=== PATIENT | female | born 2000 | race Caucasian/White ===

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

== ENCOUNTER 2018-10-26 03:25 | Emergency (ER) | payer OTHER ==
[2018-10-26] MEDS ORDERED: diphenhydrAMINE 50 MG/ML SDV IVPUSH ONE (03:29)
[2018-10-26] MEDS ORDERED: methylPREDNISolone Sodium Succinate 125 MG/2 ML SDV IVPUSH ONE (03:29)
[2018-10-26] MEDS ORDERED: Famotidine 20 MG/2 ML SDV IVPUSH ONE (03:29)
[2018-10-26] MEDS ORDERED: LORazepam 2 MG/ML SDV IVPUSH ONE ×2 (03:31→04:47)
--- NOTE | 2018-10-26 03:34 | EDM.PDOC ---
ED HPI GENERAL MEDICAL PROBLEM - General Stated Complaint: ALLERGIC REACTION Time Seen by Provider: 10/26/18 03:31 Source of Information: Reports: Patient, EMS - History of Present Illness INITIAL COMMENTS - FREE TEXT/NARRATIVE: HISTORY AND PHYSICAL: History of present illness: []Patient is in EMS, she was out on a call tonight, she believe she was stung by a bee she does have bee sting allergy EMS coworkers did provide epinephrine stating she had some lip swelling and stridor She then had a panic attack It is questionable whether she was stung by a bee or may be was pricked by a cactus however no stinger is present and no markings are present. Leave the injury/staying or pole occurred on the right upper extremity no lesions are appreciated At current she is quite anxious however in no distress maintaining her airway hemodynamically stable no lip swelling tongue swelling or stridor noted No fever nausea vomiting chills sweats no chest pain shortness breath headache dizziness palpitation no bowel or urine symptoms Review of systems: As per history of present illness and below otherwise all systems reviewed and negative. Past medical history: As per history of present illness and as reviewed below otherwise noncontributory. Surgical history: As per history of present illness and as reviewed below otherwise noncontributory. Social history: No reported history of drug or alcohol abuse. Family history: As per history of present illness and as reviewed below otherwise noncontributory. Physical exam: HEENT: Atraumatic, normocephalic, pupils reactive, negative for conjunctival pallor or scleral icterus, mucous membranes moist, throat clear, neck supple, nontender, trachea midline. Lungs: Clear to auscultation, breath sounds equal bilaterally, chest nontender. Heart: S1S2, regular, negative for clicks, rubs, or JVD. Abdomen: Soft, nondistended, nontender. Negative for masses or hepatosplenomegaly. Negative for costovertebral tenderness. Pelvis: Stable nontender. Genitourinary: Deferred. Rectal: Deferred. Extremities: Atraumatic, negative for cords or calf pain. Neurovascular unremarkable. Neuro: Awake, alert, oriented. Cranial nerves II through XII unremarkable. Cerebellum unremarkable. Motor and sensory unremarkable throughout. Exam nonfocal. Diagnostics: [Clinical ] Therapeutics: [Epinephrine provided via EMS Ativan 1 mg IV 2 Benadryl Famotidine Solu-Medrol ] Impression: Anxiety [ possible bee sting Bee sting allergy history Definitive disposition and diagnosis as appropriate pending reevaluation and review of above. Headache Pain Score (Numeric/FACES): 5 Back Pain Score (Numeric/FACES): 7 - Related Data Allergies Allergy/AdvReac Type Severity Reaction Status Date / Time No Known Allergies Allergy Verified 07/05/16 11:15 Home Meds: Home Meds Amitriptyline [Elavil] 10 mg PO BEDTIME 07/05/16 [History] ED ROS GENERAL - Review of Systems Review Of Systems: See Below ED EXAM, GENERAL - Physical Exam Exam: See Below Course - Vital Signs Last Recorded V/S: Last Vital Signs Temp 97.8 F 10/26/18 03:31 Pulse 107 H 10/26/18 03:44 Resp 15 10/26/18 03:44 BP 123/56 L 10/26/18 03:44 Pulse Ox 97 10/26/18 03:44 - Orders/Labs/Meds Orders: Active Orders 24 hr Category Date Time Status EKG 12 Lead [EKG Documentation Completion] [RC] STAT Care 10/26/18 03:45 Active Meds: Medications Discontinued Medications Generic Name Dose Route Start Last Admin Trade Name Freq PRN Reason Stop Dose Admin Diphenhydramine HCl 50 mg 10/26/18 03:29 10/26/18 03:48 Benadryl IVPUSH 10/26/18 03:30 50 mg ONETIME ONE Administration Famotidine 20 mg 10/26/18 03:29 10/26/18 03:48 Pepcid IVPUSH 10/26/18 03:30 20 mg ONETIME ONE Administration Sodium Chloride 1,000 mls @ 999 mls/hr 10/26/18 03:44 10/26/18 03:54 Normal Saline IV 10/26/18 04:44 999 mls/hr STAT ONE Administration Lorazepam 1 mg 10/26/18 03:31 10/26/18 03:47 Ativan IVPUSH 10/26/18 03:32 1 mg ONETIME ONE Administration Lorazepam 1 mg 10/26/18 04:47 10/26/18 04:55 Ativan IVPUSH 10/26/18 04:48 1 mg ONETIME ONE Administration Methylprednisolone Sodium Succinate 125 mg 10/26/18 03:29 10/26/18 03:47 Solu-Medrol IVPUSH 10/26/18 03:30 125 mg ONETIME ONE Administration Ondansetron HCl 8 mg 10/26/18 03:44 10/26/18 03:48 Zofran IVPUSH 10/26/18 03:45 8 mg ONETIME ONE Administration Departure - Departure Time of Disposition: 05:21 Disposition: Home, Self-Care 01 Condition: Good Clinical Impression: Anxiety - Discharge Information Additional Instructions: The following information is given to patients seen in the emergency department who are being discharged to home. This information is to outline your options for follow-up care. We provide all patients seen in our emergency department with a follow-up referral. The need for follow-up, as well as the timing and circumstances, are variable depending upon the specifics of your emergency department visit. If you don't have a primary care physician on staff, we will provide you with a referral. We always advise you to contact your personal physician following an emergency department visit to inform them of the circumstance of the visit and for follow-up with them and/or the need for any referrals to a consulting specialist. The emergency department will also refer you to a specialist when appropriate. This referral assures that you have the opportunity for follow-up care with a specialist. All of these measure are taken in an effort to provide you with optimal care, which includes your follow-up. Under all circumstances we always encourage you to contact your private physician who remains a resource for coordinating your care. When calling for follow-up care, please make the office aware that this follow-up is from your recent emergency room visit. If for any reason you are refused follow-up, please contact the [facility] emergency department at and asked to speak to the emergency department charge nurse. - My Orders Last 24 Hours: My Active Orders 10/26/18 03:45 EKG 12 Lead [EKG Documentation Completion] [RC] STAT - Assessment/Plan Last 24 Hours: My Active Orders 10/26/18 03:45 EKG 12 Lead [EKG Documentation Completion] [RC] STAT
[2018-10-26] MEDS ORDERED: Ondansetron 4 MG/2 ML SDV IVPUSH ONE (03:44)
[2018-10-26] MEDS ORDERED: Sodium Chloride 0.9% 1,000 ML IV ONE (03:44)
--- NOTE | 2018-10-26 04:54 | CR ---
Indication: Chest pain, dyspnea Technique: Chest 1 view Comparison: None Findings/Impression: Cardiovascular and mediastinum: Heart size and vasculature are normal in caliber and appearance. Mediastinum is within normal limits. Lungs and pleural space: Lungs are clear. No sign of infiltrate or mass. No sign of pleural effusion. No pneumothorax. Bones and soft tissues: No significant findings. Bilateral nipple piercings noted. Dictated by Gisselle Benjamin MD @ Oct 26 2018 4:53AM Signed by Dr. Gisselle Benjamin @ Oct 26 2018 4:53AM
[2018-10-26 06:27] VITALS: BP 104/56
== END 2018-10-26 05:41 | disposition home or self-care (01) ==
LOC: MW.ED 03:25
DX: F41.9 Anxiety disorder, unspecified (principal); Z91.030 Bee allergy status; Z79.899 Other long term (current) drug therapy
CPT/HCPCS: 71045; 81001; 81025; 93005; 96361; 96374; 96375; 96376; 99285; J1200; J2060; J2405; J2930; J3490; J7040; 99283

== ENCOUNTER 2018-11-08 22:52 | Emergency (ER) | payer OTHER ==
[2018-11-08] MEDS ORDERED: Sodium Chloride 0.9% 1,000 ML IV ONE (23:25)
--- NOTE | 2018-11-08 23:42 | EDM.PDOC ---
ED HPI GENERAL MEDICAL PROBLEM - General Chief Complaint: Chest Pain Stated Complaint: CHEST PAIN Time Seen by Provider: 11/08/18 23:22 - History of Present Illness INITIAL COMMENTS - FREE TEXT/NARRATIVE: HISTORY AND PHYSICAL: History of present illness: Patient 18-year-old white female presents status post overdose patient has history of anxiety and depression and took approximately 30 .5 mg lorazepam and an unknown number but estimated approximately 10-15 Luvox . Patient states she did this after she had a bad event today involving a legal matter and did intend to herself. She does remain depressed with suicidal ideation but she is cooperative and agreeable to transfer for both medical and psychiatric reasons Review of systems: As per history of present illness and below otherwise all systems reviewed and negative. Past medical history: As per history of present illness and as reviewed below otherwise noncontributory. Surgical history: As per history of present illness and as reviewed below otherwise noncontributory. Social history: No reported history of drug or alcohol abuse. Family history: As per history of present illness and as reviewed below otherwise noncontributory. Physical exam: HEENT: Atraumatic, normocephalic, pupils reactive, negative for conjunctival pallor or scleral icterus, mucous membranes moist, throat clear, neck supple, nontender, trachea midline. Lungs: Clear to auscultation, breath sounds equal bilaterally, chest nontender. Heart: S1S2, regular, negative for clicks, rubs, or JVD. Abdomen: Soft, nondistended, nontender. Negative for masses or hepatosplenomegaly. Negative for costovertebral tenderness. Pelvis: Stable nontender. Genitourinary: Deferred. Rectal: Deferred. Extremities: Atraumatic, negative for cords or calf pain. Neurovascular unremarkable. Neuro: Awake, alert, oriented. Cranial nerves II through XII unremarkable. Cerebellum unremarkable. Motor and sensory unremarkable throughout. Exam nonfocal. 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 ED EXAM, GENERAL - Physical Exam Exam: See Below (See dictation) Course - Vital Signs Last Recorded V/S: Last Vital Signs Temp 36.2 C 11/09/18 00:30 Pulse 112 H 11/09/18 00:30 Resp 15 11/09/18 00:30 BP 129/81 11/09/18 00:30 Pulse Ox 95 11/09/18 00:30 - Orders/Labs/Meds Orders: Active Orders 24 hr Category Date Time Status EKG Documentation Completion [RC] STAT Care 11/08/18 23:04 Active ABG [BLOOD GAS ARTERIAL] [BG] Stat Lab 11/09/18 00:54 Ordered Labs: Laboratory Tests 11/08/18 11/08/18 11/08/18 Range/Units 23:20 23:20 23:31 WBC 12.10 H (4.0-11.0) K/uL RBC 4.79 (4.30-5.90) M/uL Hgb 13.8 (12.0-16.0) g/dL Hct 40.8 (36.0-46.0) % MCV 85.2 (80.0-98.0) fL MCH 28.8 (27.0-32.0) pg MCHC 33.8 (31.0-37.0) g/dL RDW Std Deviation 38.5 (28.0-62.0) fl RDW Coeff of Ten 13 (11.0-15.0) % Plt Count 243 (150-400) K/uL MPV 9.80 (7.40-12.00) fL Neut % (Auto) 75.4 (48.0-80.0) % Lymph % (Auto) 20.5 (16.0-40.0) % [place] % (Auto) 3.6 (0.0-15.0) % Eos % (Auto) 0.3 (0.0-7.0) % Baso % (Auto) 0.2 (0.0-1.5) % Neut # (Auto) 9.1 H (1.4-5.7) K/uL Lymph # (Auto) 2.5 H (0.6-2.4) K/uL [place] # (Auto) 0.4 (0.0-0.8) K/uL Eos # (Auto) 0.0 (0.0-0.7) K/uL Baso # (Auto) 0.0 (0.0-0.1) K/uL Nucleated RBC % 0.0 /100WBC Nucleated RBCs # 0 K/uL Sodium 145 (136-145) mmol/L Potassium 3.5 (3.5-5.1) mmol/L Chloride 108 H (98-107) mmol/L Carbon Dioxide 22.1 (21.0-32.0) mmol/L BUN 9 (7.0-18.0) mg/dL Creatinine 0.9 (0.6-1.0) mg/dL Est Cr Clr Drug Dosing 107.10 mL/min Estimated GFR (MDRD) > 60.0 ml/min Glucose 123 H (74-106) mg/dL Calcium 9.2 (8.5-10.1) mg/dL Total Bilirubin 0.1 L (0.2-1.0) mg/dL AST 8 L (15-37) IU/L ALT 19 (14-63) IU/L Alkaline Phosphatase 70 (46-116) U/L Total Protein 7.0 (6.4-8.2) g/dL Albumin 4.0 (3.4-5.0) g/dL Globulin 3.0 (2.6-4.0) g/dL Albumin/Globulin Ratio 1.3 (0.9-1.6) TSH 3rd Generation 2.25 (0.36-3.74) uIU/mL Urine Color YELLOW Urine Appearance CLEAR Urine pH 5.5 (5.0-8.0) Ur Specific [place] <= 1.005 (1.001-1.035) Urine Protein NEGATIVE (NEGATIVE) mg/dL Urine Glucose (UA) NEGATIVE (NEGATIVE) mg/dL Urine Ketones NEGATIVE (NEGATIVE) mg/dL Urine Occult Blood NEGATIVE (NEGATIVE) Urine Nitrite NEGATIVE (NEGATIVE) Urine Bilirubin NEGATIVE (NEGATIVE) Urine Urobilinogen 0.2 (<2.0) EU/dL Ur Leukocyte Esterase NEGATIVE (NEGATIVE) Urine HCG, Qual (NEGATIVE) Salicylates 1.2 (0-20) mg/dL Urine Opiates Screen (NEGATIVE) Ur Oxycodone Screen (NEGATIVE) Urine Methadone Screen (NEGATIVE) Acetaminophen <2.0 ug/mL Ur Barbiturates Screen (NEGATIVE) Ur Phencyclidine Scrn (NEGATIVE) Ur Amphetamine Screen (NEGATIVE) U Methamphetamines Scrn (NEGATIVE) U Benzodiazepines Scrn (NEGATIVE) U Cocaine Metab Screen (NEGATIVE) U Marijuana (THC) Screen (NEGATIVE) Ethyl Alcohol 153 mg/dL 11/08/18 11/08/18 Range/Units 23:31 23:31 WBC (4.0-11.0) K/uL RBC (4.30-5.90) M/uL Hgb (12.0-16.0) g/dL Hct (36.0-46.0) % MCV (80.0-98.0) fL MCH (27.0-32.0) pg MCHC (31.0-37.0) g/dL RDW Std Deviation (28.0-62.0) fl RDW Coeff of Ten (11.0-15.0) % Plt Count (150-400) K/uL MPV (7.40-12.00) fL Neut % (Auto) (48.0-80.0) % Lymph % (Auto) (16.0-40.0) % [place] % (Auto) (0.0-15.0) % Eos % (Auto) (0.0-7.0) % Baso % (Auto) (0.0-1.5) % Neut # (Auto) (1.4-5.7) K/uL Lymph # (Auto) (0.6-2.4) K/uL [place] # (Auto) (0.0-0.8) K/uL Eos # (Auto) (0.0-0.7) K/uL Baso # (Auto) (0.0-0.1) K/uL Nucleated RBC % /100WBC Nucleated RBCs # K/uL Sodium (136-145) mmol/L Potassium (3.5-5.1) mmol/L Chloride (98-107) mmol/L Carbon Dioxide (21.0-32.0) mmol/L BUN (7.0-18.0) mg/dL Creatinine (0.6-1.0) mg/dL Est Cr Clr Drug Dosing mL/min Estimated GFR (MDRD) ml/min Glucose (74-106) mg/dL Calcium (8.5-10.1) mg/dL Total Bilirubin (0.2-1.0) mg/dL AST (15-37) IU/L ALT (14-63) IU/L Alkaline Phosphatase (46-116) U/L Total Protein (6.4-8.2) g/dL Albumin (3.4-5.0) g/dL Globulin (2.6-4.0) g/dL Albumin/Globulin Ratio (0.9-1.6) TSH 3rd Generation (0.36-3.74) uIU/mL Urine Color Urine Appearance Urine pH (5.0-8.0) Ur Specific [place] (1.001-1.035) Urine Protein (NEGATIVE) mg/dL Urine Glucose (UA) (NEGATIVE) mg/dL Urine Ketones (NEGATIVE) mg/dL Urine Occult Blood (NEGATIVE) Urine Nitrite (NEGATIVE) Urine Bilirubin (NEGATIVE) Urine Urobilinogen (<2.0) EU/dL Ur Leukocyte Esterase (NEGATIVE) Urine HCG, Qual NEGATIVE (NEGATIVE) Salicylates (0-20) mg/dL Urine Opiates Screen NEGATIVE (NEGATIVE) Ur Oxycodone Screen NEGATIVE (NEGATIVE) Urine Methadone Screen NEGATIVE (NEGATIVE) Acetaminophen ug/mL Ur Barbiturates Screen NEGATIVE (NEGATIVE) Ur Phencyclidine Scrn NEGATIVE (NEGATIVE) Ur Amphetamine Screen NEGATIVE (NEGATIVE) U Methamphetamines Scrn NEGATIVE (NEGATIVE) U Benzodiazepines Scrn NEGATIVE (NEGATIVE) U Cocaine Metab Screen NEGATIVE (NEGATIVE) U Marijuana (THC) Screen NEGATIVE (NEGATIVE) Ethyl Alcohol mg/dL Meds: Medications Discontinued Medications Generic Name Dose Route Start Last Admin Trade Name Freq PRN Reason Stop Dose Admin Sodium Chloride 1,000 mls @ 999 mls/hr 11/08/18 23:25 11/08/18 23:48 Normal Saline IV 11/09/18 00:25 999 mls/hr STAT ONE Administration Ondansetron HCl Confirm 11/08/18 23:44 Zofran Administered 11/08/18 23:45 Dose 4 mg .ROUTE .STK-MED ONE Ondansetron HCl 4 mg 11/08/18 23:49 11/08/18 23:49 Zofran IVPUSH 11/08/18 23:50 4 mg ONETIME ONE Administration Departure - Departure Time of Disposition: 00:57 Disposition: DC/Tfer to Acute Hospital 02 Condition: Fair Clinical Impression: Drug overdose, intentional, Depressive episode - Discharge Information Referrals: PCP,None [Primary Care Provider] - Forms: ED Department Discharge - My Orders Last 24 Hours: My Active Orders 11/09/18 00:54 ABG [BLOOD GAS ARTERIAL] [BG] Stat - Assessment/Plan Last 24 Hours: My Active Orders 11/09/18 00:54 ABG [BLOOD GAS ARTERIAL] [BG] Stat
[2018-11-08] MEDS ORDERED: Ondansetron 4 MG/2 ML SDV ONE (23:44)
[2018-11-08] MEDS ORDERED: Ondansetron 4 MG/2 ML SDV IVPUSH ONE (23:49)
[2018-11-09 00:01] LABS: ACETAMINOPHEN <2.0 ug/mL
[2018-11-09 00:12] LABS: CHLORIDE,CL 108 mmol/L (98-107); SODIUM,NA 145 mmol/L (136-145)
--- NOTE | 2018-11-09 00:44 | CR ---
INDICATION: Overdose TECHNIQUE: Chest 2 views COMPARISON: Chest x-ray 10/26/2018 FINDINGS: Cardiovascular and mediastinum: Heart size and vasculature are normal in caliber and appearance. Lungs and pleural spaces: Lungs are clear. No sign of infiltrate or mass. No sign of pleural effusion. No pneumothorax. Bones and soft tissues: No significant findings. IMPRESSION: No acute findings and no significant changes from the prior exam. Dictated by Arley To MD @ Nov 09 2018 12:42AM Signed by Dr. Arley To @ Nov 09 2018 12:43AM
[2018-11-09 02:10] VITALS: BP 139/82
== END 2018-11-09 02:00 ==
LOC: MW.ED 22:52
DX: T42.4X2A Poisoning by benzodiazepines, intentional self-harm, initial encounter (principal); T43.222A Poisoning by selective serotonin reuptake inhibitors, intentional self-harm, initial encounter; F32.9 Major depressive disorder, single episode, unspecified; F41.9 Anxiety disorder, unspecified
CPT/HCPCS: 36600; 71046; 80053; 80305; 81003; 81025; 82803; 84443; 85025; 93005; 96361; 96374; 99285; G0480; J2405; J7040

== ENCOUNTER 2019-02-10 16:38 | Emergency (ER) | payer OTHER ==
--- NOTE | 2019-02-10 16:45 | EDM.PDOC ---
ED HPI GENERAL MEDICAL PROBLEM - General Chief Complaint: Syncope Stated Complaint: INJURY AT WORK Time Seen by Provider: 02/10/19 16:44 Source of Information: Reports: Patient History Limitations: Reports: No Limitations - History of Present Illness INITIAL COMMENTS - FREE TEXT/NARRATIVE: HISTORY AND PHYSICAL: History of present illness: Patient is a 18-year-old female presents to the ED via EMS with complaint of syncope and versed overdose. 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 She then "went stiff" and was given versed. EMS states they meant to administer 2.5mg but accidentally gave her the whole vial which was 10mg. She also received 4mg of zofran and 1L NS IV. Patient is drowsy on arrival but answering questions appropriately. 0.1mg Romazicon given, patient completely alert and oriented after a few minutes. Patient states that she had chest pain prior to her syncopal episode and currently has pain 3/10. Review of systems: As per history of present illness and below otherwise all systems reviewed and negative. Past medical history: As per history of present illness and as reviewed below otherwise noncontributory. Surgical history: As per history of present illness and as reviewed below otherwise noncontributory. Social history: No reported history of drug or alcohol abuse. Family history: As per history of present illness and as reviewed below otherwise noncontributory. Physical exam: General: Patient sitting comfortably in no acute distress and nontoxic appearing HEENT: Atraumatic, normocephalic, pupils reactive, negative for conjunctival pallor or scleral icterus, mucous membranes moist, throat clear, neck supple, nontender, trachea midline. No meningeal signs. Lungs: Clear to auscultation, breath sounds equal bilaterally, chest nontender. Heart: S1S2, regular, negative for clicks, rubs, or overt murmur. Abdomen: Soft, nondistended, nontender. Negative for masses or hepatosplenomegaly. Negative for costovertebral tenderness. No rigidity, rebound , guarding. Pelvis: Stable nontender. Genitourinary: Deferred. Rectal: Deferred. Extremities: Atraumatic, negative for cords or calf pain. Neurovascular unremarkable. Neuro: Awake, alert, oriented. Cranial nerves II through XII unremarkable. Cerebellum unremarkable. Motor and sensory unremarkable throughout. Exam nonfocal. Notes: Dr. Valerio directly involved in care of patient. Mom states she has a history of syncope with physical activity, denies other significant past medical history. Diagnostics: EKG, CBC, CMP, UA, urine hcg Therapeutics: 0.1mg Romazicon IV 1L NS IV Prescriptions: Impression: Syncopal episode, medication overdose, atypical chest pain, UTI Definitive disposition and diagnosis as appropriate pending reevaluation and review of above. - Related Data Allergies Allergy/AdvReac Type Severity Reaction Status Date / Time No Known Allergies Allergy Verified 02/10/19 16:45 Home Meds: Home Meds Fluconazole [Diflucan] 150 mg PO ONETIME #1 tablet 02/10/19 [Rx] Nitrofurantoin Monohyd/M-Cryst [Macrobid 100 mg Capsule] 100 mg PO BID 7 Days # 14 capsule 02/10/19 [Rx] Past Medical History HEENT History: Reports: None Cardiovascular History: Reports: None Respiratory History: Reports: None Gastrointestinal History: Reports: None Genitourinary History: Reports: None DIE GRINDER History: Reports: None Musculoskeletal History: Reports: Back Pain, Chronic Neurological History: Reports: None Psychiatric History: Reports: Anxiety, Panic Attack Endocrine/Metabolic History: Reports: None Hematologic History: Reports: None Immunologic History: Reports: None Oncologic (Cancer) History: Reports: None Dermatologic History: Reports: None - Infectious Disease History Infectious Disease History: Reports: None - Past Surgical History Head Surgeries/Procedures: Reports: None Other Musculoskeletal Surgeries/Procedures:: back sx, ruptured disc Social & Family History - Family History Family Medical History: Noncontributory - Caffeine Use Caffeine Use: Reports: Coffee, Energy Drinks, Soda ED ROS GENERAL - Review of Systems Review Of Systems: Comprehensive ROS is negative, except as noted in HPI. - Physical Exam Exam: See Below (see dictation) Course - Vital Signs Last Recorded V/S: Last Vital Signs Temp 98.0 F 02/10/19 16:40 Pulse 109 H 02/10/19 17:52 Resp 16 02/10/19 17:52 BP 132/81 02/10/19 17:52 Pulse Ox 100 02/10/19 17:52 - Orders/Labs/Meds Orders: Active Orders 24 hr Category Date Time Status Chest 1V Frontal [CR] Stat Exams 02/10/19 17:16 Taken CULTURE URINE [RM] Stat Lab 02/10/19 17:25 Received Labs: Laboratory Tests 02/10/19 02/10/19 02/10/19 Range/Units 17:00 17:08 17:08 WBC 6.80 (4.0-11.0) K/uL RBC 3.96 L (4.30-5.90) M/uL Hgb 11.8 L (12.0-16.0) g/dL Hct 33.4 L (36.0-46.0) % MCV 84.3 (80.0-98.0) fL MCH 29.8 (27.0-32.0) pg MCHC 35.3 (31.0-37.0) g/dL RDW Std Deviation 38.3 (28.0-62.0) fl RDW Coeff of Ten 13 (11.0-15.0) % Plt Count 207 (150-400) K/uL MPV 9.50 (7.40-12.00) fL Neut % (Auto) 68.0 (48.0-80.0) % Lymph % (Auto) 23.8 (16.0-40.0) % [place] % (Auto) 6.9 (0.0-15.0) % Eos % (Auto) 1.0 (0.0-7.0) % Baso % (Auto) 0.3 (0.0-1.5) % Neut # (Auto) 4.6 (1.4-5.7) K/uL Lymph # (Auto) 1.6 (0.6-2.4) K/uL [place] # (Auto) 0.5 (0.0-0.8) K/uL Eos # (Auto) 0.1 (0.0-0.7) K/uL Baso # (Auto) 0.0 (0.0-0.1) K/uL Sodium 142 (136-145) mmol/L Potassium 4.1 (3.5-5.1) mmol/L Chloride 108 H (98-107) mmol/L Carbon Dioxide 21.1 (21.0-32.0) mmol/L BUN 16 (7.0-18.0) mg/dL Creatinine 1.1 H (0.6-1.0) mg/dL Est Cr Clr Drug Dosing 70.10 mL/min Estimated GFR (MDRD) > 60.0 ml/min Glucose 86 (74-106) mg/dL POC Glucose 73 (60-110) mg/dL Calcium 8.5 (8.5-10.1) mg/dL Total Bilirubin 0.2 (0.2-1.0) mg/dL AST 17 (15-37) IU/L ALT 25 (14-63) IU/L Alkaline Phosphatase 61 (46-116) U/L Total Protein 6.5 (6.4-8.2) g/dL Albumin 3.6 (3.4-5.0) g/dL Globulin 2.9 (2.6-4.0) g/dL Albumin/Globulin Ratio 1.2 (0.9-1.6) Urine Color Urine Appearance Urine pH (5.0-8.0) Ur Specific [place] (1.001-1.035) Urine Protein (NEGATIVE) mg/dL Urine Glucose (UA) (NEGATIVE) mg/dL Urine Ketones (NEGATIVE) mg/dL Urine Occult Blood (NEGATIVE) Urine Nitrite (NEGATIVE) Urine Bilirubin (NEGATIVE) Urine Urobilinogen (<2.0) EU/dL Ur Leukocyte Esterase (NEGATIVE) Urine RBC (0-2/HPF) Urine WBC (0-5/HPF) Ur Epithelial Cells (NONE-FEW) Urine Bacteria (NEGATIVE) Urine HCG, Qual (NEGATIVE) 02/10/19 02/10/19 Range/Units 17:25 17:25 WBC (4.0-11.0) K/uL RBC (4.30-5.90) M/uL Hgb (12.0-16.0) g/dL Hct (36.0-46.0) % MCV (80.0-98.0) fL MCH (27.0-32.0) pg MCHC (31.0-37.0) g/dL RDW Std Deviation (28.0-62.0) fl RDW Coeff of Ten (11.0-15.0) % Plt Count (150-400) K/uL MPV (7.40-12.00) fL Neut % (Auto) (48.0-80.0) % Lymph % (Auto) (16.0-40.0) % [place] % (Auto) (0.0-15.0) % Eos % (Auto) (0.0-7.0) % Baso % (Auto) (0.0-1.5) % Neut # (Auto) (1.4-5.7) K/uL Lymph # (Auto) (0.6-2.4) K/uL [place] # (Auto) (0.0-0.8) K/uL Eos # (Auto) (0.0-0.7) K/uL Baso # (Auto) (0.0-0.1) K/uL Sodium (136-145) mmol/L Potassium (3.5-5.1) mmol/L Chloride (98-107) mmol/L Carbon Dioxide (21.0-32.0) mmol/L BUN (7.0-18.0) mg/dL Creatinine (0.6-1.0) mg/dL Est Cr Clr Drug Dosing mL/min Estimated GFR (MDRD) ml/min Glucose (74-106) mg/dL POC Glucose (60-110) mg/dL Calcium (8.5-10.1) mg/dL Total Bilirubin (0.2-1.0) mg/dL AST (15-37) IU/L ALT (14-63) IU/L Alkaline Phosphatase (46-116) U/L Total Protein (6.4-8.2) g/dL Albumin (3.4-5.0) g/dL Globulin (2.6-4.0) g/dL Albumin/Globulin Ratio (0.9-1.6) Urine Color YELLOW Urine Appearance HAZY Urine pH 6.0 (5.0-8.0) Ur Specific [place] >= 1.030 (1.001-1.035) Urine Protein TRACE H (NEGATIVE) mg/dL Urine Glucose (UA) NEGATIVE (NEGATIVE) mg/dL Urine Ketones NEGATIVE (NEGATIVE) mg/dL Urine Occult Blood NEGATIVE (NEGATIVE) Urine Nitrite NEGATIVE (NEGATIVE) Urine Bilirubin NEGATIVE (NEGATIVE) Urine Urobilinogen 0.2 (<2.0) EU/dL Ur Leukocyte Esterase SMALL H (NEGATIVE) Urine RBC 0-2 (0-2/HPF) Urine WBC 10-15 (0-5/HPF) Ur Epithelial Cells FEW (NONE-FEW) Urine Bacteria 2+ H (NEGATIVE) Urine HCG, Qual NEGATIVE (NEGATIVE) Departure - Departure Time of Disposition: 17:58 Disposition: Home, Self-Care 01 Condition: Good Clinical Impression: Syncopal episodes, Benzodiazepine (tranquilizer) overdose, Atypical chest pain , UTI (urinary tract infection) - Discharge Information Forms: ED Department Discharge Additional Instructions: The following information is given to patients seen in the emergency department who are being discharged to home. This information is to outline your options for follow-up care. We provide all patients seen in our emergency department with a follow-up referral. The need for follow-up, as well as the timing and circumstances, are variable depending upon the specifics of your emergency department visit. If you don't have a primary care physician on staff, we will provide you with a referral. We always advise you to contact your personal physician following an emergency department visit to inform them of the circumstance of the visit and for follow-up with them and/or the need for any referrals to a consulting specialist. The emergency department will also refer you to a specialist when appropriate. This referral assures that you have the opportunity for follow-up care with a specialist. All of these measure are taken in an effort to provide you with optimal care, which includes your follow-up. Under all circumstances we always encourage you to contact your private physician who remains a resource for coordinating your care. When calling for follow-up care, please make the office aware that this follow-up is from your recent emergency room visit. If for any reason you are refused follow-up, please contact the [facility] Emergency Department at and asked to speak to the emergency department charge nurse. [facility] [address] [place] [address] [id number] [address] [id number] Drink plenty of fluids and take antibiotic as directed. Follow up with primary care provider Return to ED as needed as discussed - My Orders Last 24 Hours: My Active Orders 02/10/19 17:16 Chest 1V Frontal [CR] Stat 02/10/19 17:25 CULTURE URINE [RM] Stat - Assessment/Plan Last 24 Hours: My Active Orders 02/10/19 17:16 Chest 1V Frontal [CR] Stat 02/10/19 17:25 CULTURE URINE [RM] Stat
[2019-02-10 17:38] LABS: BLOOD UREA NITROGEN,BUN 16 mg/dL (7.0-18.0); CARBON DIOXIDE,CO2 21.1 mmol/L (21.0-32.0); CHLORIDE,CL 108 mmol/L (98-107); GLUCOSE RANDOM 86 mg/dL (74-106); POTASSIUM,K 4.1 mmol/L (3.5-5.1); SODIUM,NA 142 mmol/L (136-145)
[2019-02-10 17:52] VITALS: BP 132/81; PULSE 109
--- NOTE | 2019-02-10 18:01 | CR ---
Indication: Syncopal episode. Technique: A single AP portable view of the chest. Comparison: None Findings: Heart is normal size. The lungs are clear. No infiltrate, pleural effusion, pneumothorax is identified. Impression: No acute cardiopulmonary process Dictated by Aurelia Craven MD @ Feb 10 2019 5:58PM Signed by Dr. Aurelia Craven @ Feb 10 2019 5:59PM
== END 2019-02-10 18:10 | disposition home or self-care (01) ==
LOC: MW.ED 16:38
DX: T42.4X1A Poisoning by benzodiazepines, accidental (unintentional), initial encounter (principal); R55 Syncope and collapse; R07.89 Other chest pain; N39.0 Urinary tract infection, site not specified
CPT/HCPCS: 36415; 71045; 71045-26; 80053; 81001; 81025; 82962; 85025; 87086; 93005; 99283; 99284-25

== ENCOUNTER 2019-06-21 22:10 | Emergency (ER) | payer OTHER ==
--- NOTE | 2019-06-21 22:41 | EDM.PDOC ---
ED HPI GENERAL MEDICAL PROBLEM - General Chief Complaint: Respiratory Problem Stated Complaint: SHORTNESS OF BREATH Time Seen by Provider: 06/21/19 22:36 Source of Information: Reports: Patient - History of Present Illness INITIAL COMMENTS - FREE TEXT/NARRATIVE: The patient is a 19-year-old female who presents to the ER secondary to feeling short of breath. Over the last 1-1/2 weeks she has been having some coughing, and she just feels short of breath all the time. No fevers, no chills but she is a little bit fatigued. No palpitations, no chest pains, no nasal congestion , no other acute complaints. - Related Data Allergies Allergy/AdvReac Type Severity Reaction Status Date / Time No Known Allergies Allergy Verified 06/21/19 22:17 Home Meds: Home Meds Fluconazole [Diflucan] 150 mg PO ONETIME #1 tablet 02/10/19 [Rx] Past Medical History HEENT History: Reports: None Cardiovascular History: Reports: None Respiratory History: Reports: None Gastrointestinal History: Reports: None Genitourinary History: Reports: None HEEL SANDER RUBBER History: Reports: None Musculoskeletal History: Reports: Back Pain, Chronic Neurological History: Reports: None Psychiatric History: Reports: Anxiety, Panic Attack Endocrine/Metabolic History: Reports: None Hematologic History: Reports: None Immunologic History: Reports: None Oncologic (Cancer) History: Reports: None Dermatologic History: Reports: None - Infectious Disease History Infectious Disease History: Reports: None - Past Surgical History Head Surgeries/Procedures: Reports: None Other Musculoskeletal Surgeries/Procedures:: back sx, ruptured disc Social & Family History - Family History Family Medical History: Noncontributory - Caffeine Use Caffeine Use: Reports: Coffee, Energy Drinks, Soda - Recreational Drug Use Recreational Drug Use: No ED ROS GENERAL - Review of Systems Review Of Systems: See Below (Positive for cough, positive shortness of breath, negative for chest pain, negative palpitations, negative for hemoptysis, negative for fevers, all other Positives and pertinent negatives as per HPI.) ED EXAM, GENERAL - Physical Exam Exam: See Below Free Text/Narrative:: Constitutional: No acute distress, Non-toxic appearance, no dyspneic speech HEENT.: Normocephalic, Atraumatic, PERRL, EOMI, External ears are atraumatic, nares are patent without epistaxis Neck: Normal range of motion, Trachea Midline, No stridor Respiratory.: No respiratory distress, No tachypnea, Lungs Clear to Auscultation bilaterally without wheezes, rales, or rhonchi Cardiovascular.: Regular rate and Rhythm without murmurs, rubs, or gallops, good peripheral perfusion GI: Deferred Genital Urinary: Deferred Musculoskeletal: Good range of motion. All 4 extremities present and atraumatic , no edema Back: Full Range of Motion Skin: Warm, Dry, Color is ethnicity appropriate, No acute rash. Lymphatic: No lymphadenopathy noted Neurological: Alert, Awake and oriented x 3, No focal deficits noted appreciate , GCS 15 Psych: Affect, Judgement, mood normal Course - Vital Signs Text/Narrative:: History and exam are consistent with a mild viral syndrome. Education was provided in detail concerning our current Covid 19 pandemic Given the patient's benign clinical exam, excellent vital signs, etc. no testing is warranted and the patient can perform conservative therapy at home and go back to work when she is feeling better. Last Recorded V/S: Last Vital Signs Temp 36.6 C 06/21/19 22:18 Pulse 83 06/21/19 22:18 Resp 22 H 06/21/19 22:18 BP 125/82 06/21/19 22:18 Pulse Ox 99 06/21/19 22:18 Departure - Departure Time of Disposition: 22:41 Disposition: Home, Self-Care 01 Condition: Good Clinical Impression: Viral syndrome - Discharge Information Referrals: Wyatt Campa MD [Primary Care Provider] - Additional Instructions: VIRAL SYNDROME This appears to be a viral syndrome. They are highly common and variable, causing fevers, colds, coughs, headaches, vomiting, diarrhea, etc. Antibiotics don't work on viruses, and they need to run their course. On average these last 7-10 days, depending upon the virus. There are some that even last up to several weeks. Rest, drink plenty of clear fluids, especially water. You want our urine to be clear to a light yellow. Ibuprofen 800 mg and Tylenol 1000 mg may be taken at the same time every 6 hours as needed for fevers and discomfort. Upper respiratory congestion and sore throats can be improved with cool liquids , humidifiers, cough drops with menthol, honey, tea with honey, and over-the- counter decongestants. Return to the ER if you develop difficulty breathing, or any other concerns. Sepsis Event Note - Evaluation Sepsis Screening Result: No Definite Risk - Focused Exam Vital Signs: Vital Signs Temp Pulse Resp BP Pulse Ox 06/21/19 22:18 36.6 C 83 22 H 125/82 99 Date Exam was Performed: 06/21/19 Time Exam was Performed: 22:36
[2019-06-21 23:29] VITALS: BP 114/73; PULSE 73
--- NOTE | 2019-06-21 23:29 | CR ---
INDICATION: Left-sided chest pain COMPARISON: None TECHNIQUE: Frontal and lateral views of the chest FINDINGS: The lungs are clear. There is no pleural effusion or pneumothorax. The cardiomediastinal silhouette is normal. The osseous structures are unremarkable. IMPRESSION: No acute intrathoracic process. Dictated by Nathan Hayden MD @ Jun 21 2019 11:26PM Signed by Dr. Nathan Hayden @ Jun 21 2019 11:28PM
== END 2019-06-21 23:29 | disposition home or self-care (01) ==
LOC: MW.ED 22:10
DX: B34.9 Viral infection, unspecified (principal)
CPT/HCPCS: 71046; 71046-26; 99282; 99284-25

== ENCOUNTER 2019-11-04 02:23 | Emergency (ER) | payer OTHER ==
[2019-11-04] MEDS ORDERED: Sodium Chloride 0.9% 10 ML Syringe FLUSH PRN (02:36)
[2019-11-04] MEDS ORDERED: Sodium Chloride 0.9% 2.5 ML Syringe FLUSH PRN (02:36)
--- NOTE | 2019-11-04 02:41 | EDM.PDOC ---
ED HPI GENERAL MEDICAL PROBLEM - General Chief Complaint: General Stated Complaint: SEIZURES Time Seen by Provider: 11/04/19 02:36 Source of Information: Reports: Patient, EMS, Family - History of Present Illness INITIAL COMMENTS - FREE TEXT/NARRATIVE: History of present illness: 19-year-old female brought by EMS for possibly panic attack/anxiety/questionable seizure. 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 The patient started to become very anxious and bystanders were questioning if the patient had a seizure as she had some shaking of her extremities, however her sister was present reported that within 1 minute she was able to speak and say "I am fine". She does report history of " seizures" in the past for which she has never had any kind of work-up nor seen a neurologist, nor is she on any antiepileptics. She does report longstanding history of anxiety for which she takes propranolol and has previously had overdosed on benzos in the past. At this time she denies any suicidal or homicidal ideation. She reports she feels anxious but otherwise feels okay. Heart rate is elevated on arrival here and patient reports that is normal for her that her baseline resting heart rate is in the 130s. Apparently the patient was also recently started on phentermine 1 month ago for weight loss. Review of systems: As per history of present illness and below otherwise all systems reviewed and negative. Past medical history: As per history of present illness and as reviewed below otherwise noncontributo ry. Anxiety , ? Seizures versus pseudoseizures Surgical history: As per history of present illness and as reviewed below otherwise noncontributory. Social history: No reported history of drug abuse. Occasional alcohol Family history: As per history of present illness and as reviewed below otherwise noncontributory. Physical exam: GEN: no acute distress, well appearing HEENT: Atraumatic, normocephalic, mucous membranes moist, Neck: supple. Lungs: No respiratory distress. Heart: Tachycardic, regular Abdomen: Soft, nondistended, nontender. Back: nontender Extremities: Atraumatic. Neurovascularly intact. Neuro: Awake, alert, oriented. Neuro Exam nonfocal. No signs of seizure activity. Skin: warm, dry, no lesions Psych: Appears very anxious, tearful, however denies suicidal or homicidal ideation, no hallucinations Diagnostics: [] Therapeutics: [] MDM: Impression: [] Plan: [] Definitive disposition and diagnosis as appropriate pending reevaluation and review of above. headache Pain Score (Numeric/FACES): 3 - Related Data Allergies Allergy/AdvReac Type Severity Reaction Status Date / Time No Known Allergies Allergy Verified 11/04/19 02:28 Home Meds: Home Meds Fluconazole [Diflucan] 150 mg PO ONETIME #1 tablet 02/10/19 [Rx] LORazepam [Ativan] 0.5 mg PO ASDIRECTED PRN 11/04/19 [History] Phentermine HCl 37.5 mg PO DAILY 11/04/19 [History] Propranolol [Inderal] 20 mg PO DAILY 11/04/19 [History] fluvoxaMINE 75 mg PO DAILY 11/04/19 [History] hydrOXYzine HCL [hydrOXYzine] 25 mg PO ASDIRECTED 11/04/19 [History] traZODone HCl [Trazodone HCl] 75 mg PO ASDIRECTED 11/04/19 [History] Past Medical History HEENT History: Reports: None Cardiovascular History: Reports: None Other Cardiovascular History: SVT Respiratory History: Reports: None Gastrointestinal History: Reports: None Genitourinary History: Reports: None NOZZLE TENDER History: Reports: None Musculoskeletal History: Reports: Back Pain, Chronic Neurological History: Reports: None Psychiatric History: Reports: Anxiety, Panic Attack Endocrine/Metabolic History: Reports: None Hematologic History: Reports: None Immunologic History: Reports: None Oncologic (Cancer) History: Reports: None Dermatologic History: Reports: None - Infectious Disease History Infectious Disease History: Reports: None - Past Surgical History Head Surgeries/Procedures: Reports: None Other Musculoskeletal Surgeries/Procedures:: back sx, ruptured disc Social & Family History - Family History Family Medical History: Noncontributory - Tobacco Use Smoking Status *Q: Former Smoker Used Tobacco, but Quit: Yes Month/Year Tobacco Last Used: 2019 - Caffeine Use Caffeine Use: Reports: Coffee - Recreational Drug Use Recreational Drug Use: No ED ROS GENERAL - Review of Systems Review Of Systems: See Below (See HPI) ED EXAM, GENERAL - Physical Exam Exam: See Below (See HPI) EKG INTERPRETATION EKG Interpretation Comments: EKG performed today at 2:28 AM, sinus tachycardia, rate 125, possible mild diffuse ST elevation versus slightly artifact/baseline variation due to patient movement. No STEMI. QTc 452. Interpreted by me Course - Vital Signs Text/Narrative:: Patient with anxiety, tachycardia, recent alcohol intake, and questionable seizure earlier today. Normal neurologic exam, labs unremarkable except for elevated TSH but free T4 is normal. EKG tachycardia. Patient on multiple anxiolytics, antidepressants, cardioactive and weight loss medications. Up-to-date drug interaction relay checker was reviewed and there are multiple interactions including potential for serotonin syndrome and seizure risk. All of the above was discussed with patient and the need to work with her physicians to safely decrease and remove some of these medications/minimize her interaction risk. Last Recorded V/S: Last Vital Signs Temp 97.2 F 11/04/19 04:15 Pulse 104 H 11/04/19 04:15 Resp 18 11/04/19 04:15 BP 120/87 11/04/19 04:15 Pulse Ox 98 11/04/19 04:15 - Orders/Labs/Meds Orders: Active Orders 24 hr Category Date Time Status Saline Lock Insert [OM.PC] Stat Oth 11/04/19 02:36 Ordered Labs: Laboratory Tests 11/04/19 11/04/19 11/04/19 Range/Units 02:33 02:50 02:50 WBC 8.86 (4.0-11.0) K/uL RBC 4.66 (4.30-5.90) M/uL Hgb 13.5 (12.0-16.0) g/dL Hct 39.3 (36.0-46.0) % MCV 84.3 (80.0-98.0) fL MCH 29.0 (27.0-32.0) pg MCHC 34.4 (31.0-37.0) g/dL RDW Std Deviation 38.2 (28.0-62.0) fl RDW Coeff of Ten 13 (11.0-15.0) % Plt Count 301 (150-400) K/uL MPV 9.50 (7.40-12.00) fL Neut % (Auto) 55.0 (48.0-80.0) % Lymph % (Auto) 37.0 (16.0-40.0) % [place] % (Auto) 6.1 (0.0-15.0) % Eos % (Auto) 1.4 (0.0-7.0) % Baso % (Auto) 0.5 (0.0-1.5) % Neut # (Auto) 4.9 (1.4-5.7) K/uL Lymph # (Auto) 3.3 H (0.6-2.4) K/uL [place] # (Auto) 0.5 (0.0-0.8) K/uL Eos # (Auto) 0.1 (0.0-0.7) K/uL Baso # (Auto) 0.0 (0.0-0.1) K/uL Nucleated RBC % 0.0 /100WBC Nucleated RBCs # 0 K/uL Sodium 143 (136-145) mmol/L Potassium 3.7 (3.5-5.1) mmol/L Chloride 107 (98-107) mmol/L Carbon Dioxide 18.5 L (21.0-32.0) mmol/L BUN 14 (7.0-18.0) mg/dL Creatinine 1.4 H (0.6-1.0) mg/dL Est Cr Clr Drug Dosing 61.81 mL/min Estimated GFR (MDRD) 47.5 ml/min Glucose 114 H (74-106) mg/dL POC Glucose 98 (60-110) mg/dL Calcium 9.1 (8.5-10.1) mg/dL Total Bilirubin 0.2 (0.2-1.0) mg/dL AST 21 (15-37) IU/L ALT 25 (14-63) IU/L Alkaline Phosphatase 72 (46-116) U/L Troponin I < 0.050 (0.000-0.056) ng/mL Total Protein 7.6 (6.4-8.2) g/dL Albumin 4.5 (3.4-5.0) g/dL Globulin 3.1 (2.6-4.0) g/dL Albumin/Globulin Ratio 1.5 (0.9-1.6) Free T4 (0.76-1.46) ng/dL TSH 3rd Generation 3.91 H (0.36-3.74) uIU/mL HCG, Qual (NEG) Ethyl Alcohol 171 mg/dL 11/04/19 11/04/19 Range/Units 02:50 02:50 WBC (4.0-11.0) K/uL RBC (4.30-5.90) M/uL Hgb (12.0-16.0) g/dL Hct (36.0-46.0) % MCV (80.0-98.0) fL MCH (27.0-32.0) pg MCHC (31.0-37.0) g/dL RDW Std Deviation (28.0-62.0) fl RDW Coeff of Ten (11.0-15.0) % Plt Count (150-400) K/uL MPV (7.40-12.00) fL Neut % (Auto) (48.0-80.0) % Lymph % (Auto) (16.0-40.0) % [place] % (Auto) (0.0-15.0) % Eos % (Auto) (0.0-7.0) % Baso % (Auto) (0.0-1.5) % Neut # (Auto) (1.4-5.7) K/uL Lymph # (Auto) (0.6-2.4) K/uL [place] # (Auto) (0.0-0.8) K/uL Eos # (Auto) (0.0-0.7) K/uL Baso # (Auto) (0.0-0.1) K/uL Nucleated RBC % /100WBC Nucleated RBCs # K/uL Sodium (136-145) mmol/L Potassium (3.5-5.1) mmol/L Chloride (98-107) mmol/L Carbon Dioxide (21.0-32.0) mmol/L BUN (7.0-18.0) mg/dL Creatinine (0.6-1.0) mg/dL Est Cr Clr Drug Dosing mL/min Estimated GFR (MDRD) ml/min Glucose (74-106) mg/dL POC Glucose (60-110) mg/dL Calcium (8.5-10.1) mg/dL Total Bilirubin (0.2-1.0) mg/dL AST (15-37) IU/L ALT (14-63) IU/L Alkaline Phosphatase (46-116) U/L Troponin I (0.000-0.056) ng/mL Total Protein (6.4-8.2) g/dL Albumin (3.4-5.0) g/dL Globulin (2.6-4.0) g/dL Albumin/Globulin Ratio (0.9-1.6) Free T4 1.28 (0.76-1.46) ng/dL TSH 3rd Generation (0.36-3.74) uIU/mL HCG, Qual NEGATIVE (NEG) Ethyl Alcohol mg/dL Meds: Medications Discontinued Medications Generic Name Dose Route Start Last Admin Trade Name Freq PRN Reason Stop Dose Admin Sodium Chloride 1,000 mls @ 999 mls/hr 11/04/19 02:45 11/04/19 02:41 Normal Saline IV 999 mls/hr ASDIRECTED TIFFANIE Administration Sodium Chloride 10 ml 11/04/19 02:36 11/04/19 02:41 Saline Flush FLUSH 10 ml ASDIRECTED PRN Administration Keep Vein Open Sodium Chloride 2.5 ml 11/04/19 02:36 11/04/19 02:41 Saline Flush FLUSH 2.5 ml ASDIRECTED PRN Administration Keep Vein Open - Re-Assessments/Exams Free Text/Narrative Re-Assessment/Exam: 11/04/19 04:21 Discussed all results with the patient. She reports she is feeling well now. Heart rate is significantly improved. I did discuss with the patient the medications she is taking and we reviewed together the interactions of which there are many, including many potential severe interactions including risk of serotonin syndrome and seizure threshold lowering potential. She did report that she also recently started taking Wellbutrin which she had not previously listed on her home medication list. Discussed interactions with this medication as well. Discussed the need to stop phentermine and discussed this list of medications and potential interactions with all of her physicians to determine which medications to taper and remove in which to continue with. Patient does agree to do so. We also discussed need for follow-up with neurology to evaluate for this potential seizure activity. She voiced understanding and agrees to do so. Departure - Departure Time of Disposition: 04:23 Disposition: Home, Self-Care 01 Clinical Impression: Anxiety, Tachycardia, Seizure - Discharge Information Instructions: Sinus Tachycardia, Supporting Someone With Anxiety, Seizure, Adult, [id number] Referrals: PCP,None [Primary Care Provider] - Radha Turner MD [Physician] - 1 Day Forms: ED Department Discharge Additional Instructions: Follow-up with your physician who prescribes her medications as soon as possible. Please bring a list of all your medications with you, and discuss potential interactions in which medications can be stopped or removed safely and how to do so with your physician and psychiatrist. You will also need to see neurology for further work-up of the convulsive type activity that you seem to be having to evaluate if this is seizure or other seizure-like activity. If you develop any worsening symptoms, abnormal neurologic activity, chest pain, or any other concerning symptoms, please return to the emergency department immediately. The following information is given to patients seen in the emergency department who are being discharged to home. This information is to outline your options for follow-up care. We provide all patients seen in our emergency department with a follow-up referral. The need for follow-up, as well as the timing and circumstances, are variable depending upon the specifics of your emergency department visit. If you don't have a primary care physician on staff, we will provide you with a referral. We always advise you to contact your personal physician following an emergency department visit to inform them of the circumstance of the visit and for follow-up with them and/or the need for any referrals to a consulting specialist. The emergency department will also refer you to a specialist when appropriate. This referral assures that you have the opportunity for follow-up care with a specialist. All of these measure are taken in an effort to provide you with optimal care, which includes your follow-up. Under all circumstances we always encourage you to contact your private physician who remains a resource for coordinating your care. When calling for follow-up care, please make the office aware that this follow-up is from your recent emergency room visit. If for any reason you are refused follow-up, please contact the [facility] Emergency Department at and asked to speak to the emergency department charge nurse. [facility] [address] [place] [id number] [facility] [address] [place] [id number] Sepsis Event Note (ED) - Evaluation Sepsis Screening Result: No Definite Risk - Focused Exam Vital Signs: Vital Signs Temp Pulse Resp BP Pulse Ox 11/04/19 04:15 97.2 F 104 H 18 120/87 98 11/04/19 03:00 108 H 11/04/19 02:30 97.5 F 138 H 24 H 130/95 H 94 L - My Orders Last 24 Hours: My Active Orders 11/04/19 02:36 Saline Lock Insert [OM.PC] Stat - Assessment/Plan Last 24 Hours: My Active Orders 11/04/19 02:36 Saline Lock Insert [OM.PC] Stat
[2019-11-04] MEDS ORDERED: Sodium Chloride 0.9% 1,000 ML IV SCH (02:45)
[2019-11-04 03:27] LABS: BLOOD UREA NITROGEN,BUN 14 mg/dL (7.0-18.0); CARBON DIOXIDE,CO2 18.5 mmol/L (21.0-32.0); CHLORIDE,CL 107 mmol/L (98-107); GLUCOSE RANDOM 114 mg/dL (74-106); POTASSIUM,K 3.7 mmol/L (3.5-5.1); SODIUM,NA 143 mmol/L (136-145)
[2019-11-04 04:51] VITALS: BP 120/87; PULSE 104
== END 2019-11-04 04:30 | disposition home or self-care (01) ==
LOC: MW.ED 02:23
DX: R56.9 Unspecified convulsions (principal); F41.9 Anxiety disorder, unspecified; R00.0 Tachycardia, unspecified; Z87.891 Personal history of nicotine dependence
CPT/HCPCS: 36415; 80053; 80307; 82962; 84439; 84443; 84484; 84703; 85025; 93005; 96360; 99285; J7030; 99283

== ENCOUNTER 2020-07-26 16:39 | Emergency (ER) | payer OTHER ==
[2020-07-26 18:00] VITALS: BP 124/70; PULSE 71
--- NOTE | 2020-07-26 18:27 | EDM.PDOC ---
ED HPI GENERAL MEDICAL PROBLEM - General Chief Complaint: General Stated Complaint: NEEDLESTICK Time Seen by Provider: 07/26/20 17:04 - History of Present Illness INITIAL COMMENTS - FREE TEXT/NARRATIVE: NeedlestickCHIEF COMPLAINT(S): needlestick injury HISTORY OF PRESENT ILLNESS: This is a 20-year-old woman without any significant past medical who comes to the emergency department with a chief complaint of needlestick injury. 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 She states that she did draw some blood. She states that the bleeding has stopped. She denies any pain, numbness, tingling, or weakness. She denies any other symptoms REVIEW OF SYSTEMS: Skin: Positive for needlestick injury with blood draw MSK: Denies joint pain PAST MEDICAL HISTORY: As per history of present illness and as reviewed below otherwise noncontributory. SURGICAL HISTORY: As per history of present illness and as reviewed below otherwise noncontributory. SOCIAL HISTORY: As per history of present illness and as reviewed below otherwise noncontributory. FAMILY HISTORY: As per history of present illness and as reviewed below otherwise noncontributory. EXAMINATION OF ORGAN SYSTEMS/BODY AREAS: Constitutional: Blood pressure is 124/70, heart rate 71, respiratory rate 17 with an oxygen saturation of 98% on room air. Temperature 36.4 General: Overall well-appearing woman in no acute distress Psychiatric: Appropriate mood and affect. Musculoskeletal: Normal range of motion. Skin: No lesions or abrasions. MEDICAL DECISION MAKING AND COURSE IN THE ED WITH INTERPRETATION/REVIEW OF DIAGNOSTIC STUDIES: This is a 20-year-old woman without any significant past medical history who comes to the emergency department with needlestick injury. At this time we will obtain baseline labs including CBC, CMP, hCG, HIV, hepatitis C and hepatitis B. The patient is hepatitis B vaccinated so therefore we do not need to provide any hepatitis B IVIG. Given the needlestick did draw blood we will start the patient on postexposure prophylaxis including Isentress and Truvada. I did discuss the side effects of this medication with the patient. Source blood was sent initial results were negative. hCG was negative. I did discuss with patient that she needed to follow-up with primary care physician for repeat labs and continued monitoring. She is to complete a 28-day of postexposure prophylaxis. She was amenable discharge at this time and had no further questions. DISPOSITION: The patient was discharged home in stable condition. The patient will follow up with primary care physician CONDITION: Good PROCEDURES: None FINAL IMPRESSION(S)/DIAGNOSES: 1. Acute accidental needlestick injury Robert Morrissey M.D. - Related Data Allergies Allergy/AdvReac Type Severity Reaction Status Date / Time No Known Allergies Allergy Verified 11/04/19 02:28 Home Meds: Home Meds Fluconazole [Diflucan] 150 mg PO ONETIME #1 tablet 02/10/19 [Rx] LORazepam [Ativan] 0.5 mg PO ASDIRECTED PRN 11/04/19 [History] Phentermine HCl 37.5 mg PO DAILY 11/04/19 [History] Propranolol [Inderal] 20 mg PO DAILY 11/04/19 [History] fluvoxaMINE 75 mg PO DAILY 11/04/19 [History] hydrOXYzine HCL [hydrOXYzine] 25 mg PO ASDIRECTED 11/04/19 [History] traZODone HCl [Trazodone HCl] 75 mg PO ASDIRECTED 11/04/19 [History] Emtricitabine/Tenofovir [Truvada 200 mg-300 mg Tablet] 1 each PO DAILY #28 tablet 07/26/20 [Rx] Ondansetron [Zofran ODT] 4 mg PO Q6H PRN #24 tab.dis 07/26/20 [Rx] Raltegravir [Isentress] 400 mg PO BID #56 tab 07/26/20 [Rx] Past Medical History HEENT History: Reports: None Cardiovascular History: Reports: None Other Cardiovascular History: SVT Respiratory History: Reports: None Gastrointestinal History: Reports: None Genitourinary History: Reports: None PRE SALES TECHNICAL CONSULTANT History: Reports: None Musculoskeletal History: Reports: Back Pain, Chronic Neurological History: Reports: None Psychiatric History: Reports: Anxiety, Panic Attack Endocrine/Metabolic History: Reports: None Hematologic History: Reports: None Immunologic History: Reports: None Oncologic (Cancer) History: Reports: None Dermatologic History: Reports: None - Infectious Disease History Infectious Disease History: Reports: None - Past Surgical History Head Surgeries/Procedures: Reports: None Other Musculoskeletal Surgeries/Procedures:: back sx, ruptured disc Social & Family History - Family History Family Medical History: No Pertinent Family History - Tobacco Use Tobacco Use Status *Q: Never Tobacco User - Caffeine Use Caffeine Use: Reports: None - Recreational Drug Use Recreational Drug Use: No ED ROS GENERAL - Review of Systems Review Of Systems: See Below ED EXAM, GENERAL - Physical Exam Exam: See Below Course - Vital Signs Last Recorded V/S: Last Vital Signs Temp 36.4 C 07/26/20 17:57 Pulse 71 07/26/20 17:57 Resp 17 07/26/20 17:57 BP 124/70 07/26/20 17:57 Pulse Ox 98 07/26/20 17:57 - Orders/Labs/Meds Labs: Laboratory Tests 07/26/20 07/26/20 07/26/20 Range/Units 17:05 17:05 17:15 WBC 10.29 (4.0-11.0) K/uL RBC 4.73 (4.30-5.90) M/uL Hgb 13.9 (12.0-16.0) g/dL Hct 41.3 (36.0-46.0) % MCV 87.3 (80.0-98.0) fL MCH 29.4 (27.0-32.0) pg MCHC 33.7 (31.0-37.0) g/dL RDW Std Deviation 40.9 (28.0-62.0) fl RDW Coeff of Ten 13 (11.0-15.0) % Plt Count 267 (150-400) K/uL MPV 10.10 (7.40-12.00) fL Neut % (Auto) 70.8 (48.0-80.0) % Lymph % (Auto) 19.7 (16.0-40.0) % [place] % (Auto) 6.4 (0.0-15.0) % Eos % (Auto) 2.9 (0.0-7.0) % Baso % (Auto) 0.2 (0.0-1.5) % Neut # (Auto) 7.3 H (1.4-5.7) K/uL Lymph # (Auto) 2.0 (0.6-2.4) K/uL [place] # (Auto) 0.7 (0.0-0.8) K/uL Eos # (Auto) 0.3 (0.0-0.7) K/uL Baso # (Auto) 0.0 (0.0-0.1) K/uL Nucleated RBC % 0.0 /100WBC Nucleated RBCs # 0 K/uL Sodium 141 (136-145) mmol/L Potassium 3.7 (3.5-5.1) mmol/L Chloride 107 (98-107) mmol/L Carbon Dioxide 16.8 L (21.0-32.0) mmol/L BUN 16 (7.0-18.0) mg/dL Creatinine 1.2 H (0.6-1.0) mg/dL Est Cr Clr Drug Dosing 74.18 mL/min Estimated GFR (MDRD) 56.2 ml/min Glucose 122 H (74-106) mg/dL Calcium 8.7 (8.5-10.1) mg/dL Total Bilirubin 0.2 (0.2-1.0) mg/dL AST 49 H (15-37) IU/L ALT 42 (14-63) IU/L Alkaline Phosphatase 72 (46-116) U/L Total Protein 7.5 (6.4-8.2) g/dL Albumin 4.0 (3.4-5.0) g/dL Globulin 3.5 (2.6-4.0) g/dL Albumin/Globulin Ratio 1.1 (0.9-1.6) HCG, Qual NEGATIVE (NEG) Hep Bs Antigen Index < 0.1 (<1.0) INDEX Hep Bs Antibody Index < 3.1 mIU/mL Hep C Ab Index (CHRISTINA) < 0.02 (<0.8) INDEX HIV 1&2 Ag/Ab, 4th Gen 0.1 (<1.0) INDEX Meds: Medications Discontinued Medications Generic Name Dose Route Start Last Admin Trade Name Freq PRN Reason Stop Dose Admin Emtricitabine/Tenofovir 1 tab 07/26/20 17:17 07/26/20 17:57 Emtricitabine/Tenofovir Tab PO 07/26/20 17:18 1 tab ONETIME ONE Administration Raltegravir 400 mg 07/26/20 17:17 07/26/20 17:57 Raltegravir 400 Mg Tab PO 07/26/20 17:18 400 mg ONETIME STA Administration Departure - Departure Time of Disposition: 18:25 Disposition: Home, Self-Care 01 Condition: Good Clinical Impression: Needle stick injury - Discharge Information Prescriptions: Raltegravir [Isentress] 400 mg PO BID #56 tab Emtricitabine/Tenofovir [Truvada 200 mg-300 mg Tablet] 1 each PO DAILY #28 tablet Ondansetron [Zofran ODT] 4 mg PO Q6H PRN #24 tab.dis PRN Reason: Nausea/Vomiting Instructions: HIV Antibody Test, Preventing HIV Infection and AIDS Referrals: PCP,None [Primary Care Provider] - Forms: ED Department Discharge Additional Instructions: You were evaluated today on an emergent basis. At this time I do recommend you continue with the postexposure prophylaxis that we provided you. I do recommend that you follow-up with your primary care physician within 1 week to set up follow-up appointments for repeat labs which are in 6 weeks. With the postexposure prophylaxis he will likely experience nausea, vomiting, or diarrhea. I did provide you with Zofran for nausea relief. [facility] [address] [place] [address] [place] [address] The patient is informed of any results of their evaluation and diagnostic workup and all questions are answered. They are given discharge instructions and return precautions. The patient is stable for discharge. The patient states they understand and agree with the plan and that they will return if their symptoms get worse or if they have any new concerns. The following information is given to patients seen in the emergency department who are being discharged to home. This information is to outline your options for follow-up care. We provide all patients seen in our emergency department wit h a follow-up referral. The need for follow-up, as well as the timing and circumstances, are variable depending upon the specifics of your emergency department visit. If you don't have a primary care physician on staff, we will provide you with a referral. We always advise you to contact your personal physician following an emergency department visit to inform them of the circumstance of the visit and for follow-up with them and/or the need for any referrals to a consulting specialist. The emergency department will also refer you to a specialist when appropriate. This referral assures that you have the opportunity for follow-up care with a specialist. All of these measure are taken in an effort to provide you with optimal care, which includes your follow-up. Under all circumstances we always encourage you to contact your private physician who remains a resource for coordinating your care. When calling for follow-up care, please make the office aware that this follow-up is from your recent emergency room visit. If for any reason you are refused follow-up, please contact the [facility] Emergency Department at and asked to speak to the emergency department charge nurse. Sepsis Event Note (ED) - Evaluation Sepsis Screening Result: No Definite Risk
[2020-07-26 19:32] LABS: HIV12 AG/AB 4TH GEN W/REFLEX 0.1 INDEX (<1.0)
[2020-07-26 23:21] LABS: BLOOD UREA NITROGEN,BUN 16 mg/dL (7.0-18.0); CARBON DIOXIDE,CO2 16.8 mmol/L (21.0-32.0); CHLORIDE,CL 107 mmol/L (98-107); GLUCOSE RANDOM 122 mg/dL (74-106); POTASSIUM,K 3.7 mmol/L (3.5-5.1); SODIUM,NA 141 mmol/L (136-145)
== END 2020-07-26 18:41 | disposition home or self-care (01) ==
LOC: MW.ED 16:39
DX: Z77.21 Contact with and (suspected) exposure to potentially hazardous body fluids (principal)
CPT/HCPCS: 36415; 80053; 84703; 85025; 86706; 86803; 87340; 87389; 99283; A9270

== ENCOUNTER 2020-08-10 15:06 | Emergency (ER) | payer OTHER ==
[2020-08-10] MEDS ORDERED: Sodium Chloride 0.9% 1,000 ML IV STA (15:08)
--- NOTE | 2020-08-10 15:27 | EDM.PDOC ---
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 She suddenly collapsed. The paramedics found her in and out of consciousness with some shaking activity of both upper extremities. That improved with diazepam 2.5 mg IV. The patient arrives conscious and cooperative but appearing exhausted and diaphoretic. Lead sugar on arrival was 94. The patient reported she had a history of seizures. She is on no medicine for that now. She has had vasovagal syncope or near collapse in the past. She is unsure if she is . Review of systems: As per history of present illness and below otherwise all systems reviewed and negative. Past medical history: As per history of present illness and as reviewed below otherwise noncontributory. Surgical history: As per history of present illness and as reviewed below otherwise noncontributory. Social history: No reported history of drug or alcohol abuse. Family history: As per history of present illness and as reviewed below otherwise noncontributory. Physical exam: Constitutional - well developed, well-nourished and in no acute distress HEENT - normocephalic, no evidence of trauma - external nose and mouth normal - no mass in neck and no JVD - mucosae moist EYES - full EOM, PERRL, no icterus - no evidence of inflammation, injection, or drainage Respiratory - no respiratory distress, equal bilateral expansion, lungs clear to auscultation and no abnormal lung sounds Cardiovascular - Regular Rhythm with S1 and S2 appreciated and no murmur, gallop or rub. GI - abdomen soft without distension or organomegaly - normal bowel sounds - no guard or rebound Musculoskeletal no gross deformity of long bones or joints - no tenderness, swelling or edema Neurologic - Alert and oriented times four -she slow to speak is though fatigued. CN II-XII grossly intact - motor sensory and coordination symmetrically normal Psychiatric - appropriate mood and affect with normal thought content Hematologic - No petechiae or purpura - mucosa appropriate color and sclera not pale - normal nail bed color and refill Integument - no rash or evidence of trauma - normal turgor-but diaphoretic Diagnostics: [] Therapeutics: [] Impression: [] Plan: [] Definitive disposition and diagnosis as appropriate pending reevaluation and review of above. chest Pain Score (Numeric/FACES): 5 - Related Data Allergies Allergy/AdvReac Type Severity Reaction Status Date / Time No Known Allergies Allergy Verified 11/04/19 02:28 Home Meds: Home Meds Fluconazole [Diflucan] 150 mg PO ONETIME #1 tablet 02/10/19 [Rx] Phentermine HCl 37.5 mg PO DAILY 11/04/19 [History] Propranolol [Inderal] 20 mg PO DAILY 11/04/19 [History] fluvoxaMINE 75 mg PO DAILY 11/04/19 [History] hydrOXYzine HCL [hydrOXYzine] 25 mg PO ASDIRECTED 11/04/19 [History] traZODone HCl [Trazodone HCl] 75 mg PO ASDIRECTED 11/04/19 [History] Emtricitabine/Tenofovir [Truvada 200 mg-300 mg Tablet] 1 each PO DAILY #28 tablet 07/26/20 [Rx] Ondansetron [Zofran ODT] 4 mg PO Q6H PRN #24 tab.dis 07/26/20 [Rx] Raltegravir [Isentress] 400 mg PO BID #56 tab 07/26/20 [Rx] Ondansetron [Zofran ODT] 4 mg PO Q6H PRN #10 tab.dis 08/10/20 [Rx] Sulfamethoxazole/Trimethoprim [Bactrim Ds Tablet] 1 each PO BID #20 tablet 08/10/20 [Rx] Past Medical History HEENT History: Reports: None Cardiovascular History: Reports: Arrhythmia Other Cardiovascular History: SVT Respiratory History: Reports: None Gastrointestinal History: Reports: None Genitourinary History: Reports: None VETERINARY ANATOMIST History: Reports: None Musculoskeletal History: Reports: Back Pain, Chronic Neurological History: Reports: Other (See Below) Other Neuro History: patient has a hx of syncopal episdoes Psychiatric History: Reports: Anxiety, Panic Attack Endocrine/Metabolic History: Reports: None Hematologic History: Reports: None Immunologic History: Reports: None Oncologic (Cancer) History: Reports: None Dermatologic History: Reports: None - Infectious Disease History Infectious Disease History: Reports: Novel Coronavirus - Past Surgical History Head Surgeries/Procedures: Reports: None Other Musculoskeletal Surgeries/Procedures:: back sx, ruptured disc Social & Family History - Family History Family Medical History: No Pertinent Family History - Tobacco Use Tobacco Use Status *Q: Current Every Day Tobacco User Years of Tobacco use: 6 Packs/Tins Daily: 0.2 - Caffeine Use Caffeine Use: Reports: Coffee - Recreational Drug Use Recreational Drug Use: No ED ROS GENERAL - Review of Systems Review Of Systems: Comprehensive ROS is negative, except as noted in HPI. ED EXAM, GENERAL - Physical Exam Exam: See Below Free Text/Narrative:: My physical exam is in the HPI #1 Interpretation EKG Interpretation Comments: EKG sinus tachycardia heart rate 112 atrial premature complexes. OH interval 166 QT duration 455 axis 70. Impression no obvious acute injury Course - Vital Signs Text/Narrative:: 1525 hrs. the patient has little tremor. She is wide-awake. Her color is better she is not diaphoretic. She sitting with her fianc. She says she had one seizure in the past and the seizure doctor told her to stop her other medications rather than start seizure medicine. She is never had 1 sounds. It was hot and humid today and she remembers feeling like that before she passed out. 1622 hrs. completely recovered. No acute distress. Mother who is a nurse wants to take her home. She does have UTI and this is recurrent. She is on low-dose Macrodantin to try to avoid these. Plan culture and Bactrim DS as well as Zofran. Last Recorded V/S: Last Vital Signs Temp 37.1 C 08/10/20 15:07 Pulse 119 H 08/10/20 15:07 Resp 20 08/10/20 15:07 BP 139/84 08/10/20 15:07 Pulse Ox 97 08/10/20 15:07 - Orders/Labs/Meds Orders: Active Orders 24 hr Category Date Time Status EKG Documentation Completion [RC] STAT Care 08/10/20 15:09 Active CULTURE URINE [MREF] Stat Lab 08/10/20 15:44 Received CULTURE URINE [MREF] Stat Lab 08/10/20 16:21 Ordered Labs: Laboratory Tests 08/10/20 08/10/20 08/10/20 Range/Units 15:10 15:10 15:44 WBC 11.65 H (4.0-11.0) K/uL RBC 4.80 (4.30-5.90) M/uL Hgb 14.1 (12.0-16.0) g/dL Hct 40.7 (36.0-46.0) % MCV 84.8 (80.0-98.0) fL MCH 29.4 (27.0-32.0) pg MCHC 34.6 (31.0-37.0) g/dL RDW Std Deviation 37.9 (28.0-62.0) fl RDW Coeff of Ten 12 (11.0-15.0) % Plt Count 273 (150-400) K/uL MPV 10.10 (7.40-12.00) fL Neut % (Auto) 69.4 (48.0-80.0) % Lymph % (Auto) 23.2 (16.0-40.0) % [place]kin % (Auto) 5.1 (0.0-15.0) % Eos % (Auto) 2.0 (0.0-7.0) % Baso % (Auto) 0.3 (0.0-1.5) % Neut # (Auto) 8.1 H (1.4-5.7) K/uL Lymph # (Auto) 2.7 H (0.6-2.4) K/uL [place]kin # (Auto) 0.6 (0.0-0.8) K/uL Eos # (Auto) 0.2 (0.0-0.7) K/uL Baso # (Auto) 0.0 (0.0-0.1) K/uL Nucleated RBC % 0.0 /100WBC Nucleated RBCs # 0 K/uL Sodium 139 (136-145) mmol/L Potassium 3.7 (3.5-5.1) mmol/L Chloride 105 (98-107) mmol/L Carbon Dioxide 21.5 (21.0-32.0) mmol/L BUN 16 (7.0-18.0) mg/dL Creatinine 1.3 H (0.6-1.0) mg/dL Est Cr Clr Drug Dosing 68.47 mL/min Estimated GFR (MDRD) 51.2 ml/min Glucose 100 (74-106) mg/dL Calcium 8.8 (8.5-10.1) mg/dL Total Bilirubin 0.6 (0.2-1.0) mg/dL AST 17 (15-37) IU/L ALT 30 (14-63) IU/L Alkaline Phosphatase 66 (46-116) U/L Total Protein 7.4 (6.4-8.2) g/dL Albumin 4.0 (3.4-5.0) g/dL Globulin 3.4 (2.6-4.0) g/dL Albumin/Globulin Ratio 1.2 (0.9-1.6) HCG, Quant < 1.0 mIU/mL Urine Color YELLOW Urine Appearance SLT CLOUDY Urine pH 6.0 (5.0-8.0) Ur Specific [place] <= 1.005 (1.001-1.035) Urine Protein NEGATIVE (NEGATIVE) mg/dL Urine Glucose (UA) NEGATIVE (NEGATIVE) mg/dL Urine Ketones NEGATIVE (NEGATIVE) mg/dL Urine Occult Blood MODERATE H (NEGATIVE) Urine Nitrite NEGATIVE (NEGATIVE) Urine Bilirubin NEGATIVE (NEGATIVE) Urine Urobilinogen 0.2 (<2.0) EU/dL Ur Leukocyte Esterase MODERATE H (NEGATIVE) Urine RBC 4-8 (0-2/HPF) Urine WBC 10-15 (0-5/HPF) Ur Epithelial Cells MODERATE (NONE-FEW) Urine Bacteria 1+ H (NEGATIVE) Meds: Medications Discontinued Medications Generic Name Dose Route Start Last Admin Trade Name Freq PRN Reason Stop Dose Admin Sodium Chloride 1,000 mls @ 999 mls/hr 08/10/20 15:08 08/10/20 15:18 Normal Saline IV 08/10/20 16:08 999 mls/hr STAT STA Administration Departure - Departure Time of Disposition: 16:23 Disposition: Home, Self-Care 01 Condition: Good Clinical Impression: Heat syncope, Urinary tract infection - Discharge Information Prescriptions: Sulfamethoxazole/Trimethoprim [Bactrim Ds Tablet] 1 each PO BID #20 tablet Instructions: Urinary Tract Infection, Adult, [id number], Heat Exhaustion Forms: ED Department Discharge Additional Instructions: Increase fluids. Culture was sent. [facility] [address] [place] [address] [id number] [address] [place] [address] The following information is given to patients seen in the emergency department who are being discharged to home. This information is to outline your options for follow-up care. We provide all patients seen in our emergency department with a follow-up referral. The need for follow-up, as well as the timing and circumstances, are variable depending upon the specifics of your emergency department visit. If you don't have a primary care physician on staff, we will provide you with a referral. We always advise you to contact your personal physician following an emergency department visit to inform them of the circumstance of the visit and for follow-up with them and/or the need for any referrals to a consulting specialist. The emergency department will also refer you to a specialist when appropriate. This referral assures that you have the opportunity for follow-up care with a specialist. All of these measure are taken in an effort to provide you with optimal care, which includes your follow-up. Under all circumstances we always encourage you to contact your private physician who remains a resource for coordinating your care. When calling for follow-up care, please make the office aware that this follow-up is from your recent emergency room visit. If for any reason you are refused follow-up, please contact the [facility] Emergency Department at and asked to speak to the emergency department charge nurse. Sepsis Event Note (ED) - Evaluation Sepsis Screening Result: No Definite Risk - Focused Exam Vital Signs: Vital Signs Temp Pulse Resp BP Pulse Ox 08/10/20 15:07 37.1 C 119 H 20 139/84 97 - My Orders Last 24 Hours: My Active Orders 08/10/20 15:09 EKG Documentation Completion [RC] STAT 08/10/20 15:44 CULTURE URINE [MREF] Stat 08/10/20 16:21 CULTURE URINE [MREF] Stat - Assessment/Plan Last 24 Hours: My Active Orders 08/10/20 15:09 EKG Documentation Completion [RC] STAT 08/10/20 15:44 CULTURE URINE [MREF] Stat 08/10/20 16:21 CULTURE URINE [MREF] Stat
[2020-08-10 15:46] LABS: BLOOD UREA NITROGEN,BUN 16 mg/dL (7.0-18.0); CARBON DIOXIDE,CO2 21.5 mmol/L (21.0-32.0); CHLORIDE,CL 105 mmol/L (98-107); GLUCOSE RANDOM 100 mg/dL (74-106); POTASSIUM,K 3.7 mmol/L (3.5-5.1); SODIUM,NA 139 mmol/L (136-145)
[2020-08-10 16:38] VITALS: BP 132/60; PULSE 80
== END 2020-08-10 16:45 | disposition home or self-care (01) ==
LOC: MW.ED 15:06
DX: R55 Syncope and collapse (principal); N39.0 Urinary tract infection, site not specified; Z79.899 Other long term (current) drug therapy; Z72.0 Tobacco use
CPT/HCPCS: 36415; 80053; 81001; 84702; 85025; 87086; 93005; 99284; J7030; 93010

== ENCOUNTER 2021-04-20 23:40 | Inpatient (IN) | payer OTHER ==
[2021-04-20] MEDS ORDERED: Oxytocin/0.9 % Sodium Chloride 30 UNIT/500 ML BAG IV SCH ×2 (23:45)
[2021-04-20] MEDS ORDERED: Methylergonovine 0.2 MG/1 ML Amp IM PRN (23:51)
[2021-04-20] MEDS ORDERED: Butorphanol 1 MG/ML SDV IVPUSH PRN (23:51)
[2021-04-20] MEDS ORDERED: Tranexamic Acid 1,000 MG in Sodium Chloride 0.9% 100 ML IV PRN (23:51)
[2021-04-20] MEDS ORDERED: Lidocaine 1% 50 ML MDV INJECT PRN (23:51)
[2021-04-20] MEDS ORDERED: Nalbuphine 10 MG/1 ML Vial IVPUSH PRN (23:51)
[2021-04-20] MEDS ORDERED: Sodium Chloride 0.9% 20 ML SDV IV PRN (23:51)
[2021-04-20] MEDS ORDERED: Terbutaline 1 MG/ML SDV SUBCUT PRN (23:51)
[2021-04-20] MEDS ORDERED: Sodium Chloride 0.9% 10 ML Syringe FLUSH PRN (23:51)
[2021-04-20] MEDS ORDERED: Carboprost Tromethamine 250 MCG/1 ML Amp IM PRN (23:51)
[2021-04-20] MEDS ORDERED: Misoprostol 200 MCG Tab PO PRN (23:51)
[2021-04-20] MEDS ORDERED: Sodium Chloride 0.9% 2.5 ML Syringe FLUSH PRN (23:51)
[2021-04-20] MEDS ORDERED: Water For Irrigation,Sterile 1,000 ML Container IRR PRN (23:51)
[2021-04-20] MEDS ORDERED: Misoprostol 25 MCG (1/4 of 100 MCG) Tab VAG PRN ×2 (23:51)
[2021-04-21] MEDS: Lactated Ringers 1,000 ML IV SCH ×2 (00:21→03:37)
[2021-04-21] MEDS ORDERED: Ondansetron 4 MG/2 ML SDV ONE (02:54)
[2021-04-21] MEDS ORDERED: ePHEDrine 50 MG/ML SDV ONE (03:36)
[2021-04-21] MEDS ORDERED: Ropivacaine HCl/PF 100 ML ONE (03:54)
[2021-04-21] MEDS ORDERED: ePHEDrine 50 MG/ML SDV IVPUSH PRN ×2 (04:05)
[2021-04-21] MEDS ORDERED: Ropivacaine HCl/PF 200 MG in Premix Bag 1 BAG EPIDUR SCH (04:15)
[2021-04-21] MEDS ORDERED: Benzocaine/Menthol 20%-0.5% Spray 78 GM Cannister TOP PRN (05:57)
[2021-04-21] MEDS ORDERED: Lanolin 100% Cream 7 GM Tube TOP PRN (05:57)
[2021-04-21] MEDS ORDERED: Methylergonovine 0.2 MG/1 ML Amp IM PRN (05:57)
[2021-04-21] MEDS ORDERED: Ibuprofen 400 MG Tab PO PRN (05:57)
[2021-04-21] MEDS ORDERED: Acetaminophen 500 MG Tab PO PRN (05:57)
[2021-04-21] MEDS ORDERED: Witch Hazel Medicated Pads 40/Jar TOP PRN (05:57)
[2021-04-21] MEDS ORDERED: Bisacodyl 10 MG Supp RECTAL PRN (05:57)
[2021-04-21] MEDS: Ibuprofen 800 MG Tab PO PRN ×3 (07:10→21:06)
[2021-04-21] MEDS: Acetaminophen 500 MG Tab PO PRN ×2 (14:03→21:05)
[2021-04-21] MEDS: Docusate Sodium 100 MG Cap PO PRN (21:07)
[2021-04-22] MEDS: Acetaminophen 500 MG Tab PO PRN ×2 (05:14→15:56)
[2021-04-22] MEDS: Ibuprofen 800 MG Tab PO PRN (05:14)
[2021-04-22] MEDS: Docusate Sodium 100 MG Cap PO PRN (09:22)
[2021-04-22 17:01] VITALS: BP 124/74; PULSE 74
== END 2021-04-22 17:57 | disposition home or self-care (01) | DRG 807 ==
LOC: MW.OBCHECK 23:40 → MW.OB 23:43 → MW.OBCHECK 23:51 → MW.OB 23:51 → OBSVTOIN 04-21 05:30 → MW.OB 04-21 10:20
PROVIDERS: ADMIT Obstetrics & Gynecology; ATTEND Obstetrics & Gynecology
PROC: 10E0XZZ Delivery of Products of Conception, External Approach (ICD-10-PCS; principal; 2021-04-21)
PROC: 10907ZC Drainage of Amniotic Fluid, Therapeutic from Products of Conception, Via Natural or Artificial Opening (ICD-10-PCS; 2021-04-21)
PROC: 3E033VJ Introduction of Other Hormone into Peripheral Vein, Percutaneous Approach (ICD-10-PCS; 2021-04-21)
PROC: 3E0R3BZ Introduction of Anesthetic Agent into Spinal Canal, Percutaneous Approach (ICD-10-PCS; 2021-04-21)
PROC: 00HU33Z Insertion of Infusion Device into Spinal Canal, Percutaneous Approach (ICD-10-PCS; 2021-04-21)
DX: O80 Encounter for full-term uncomplicated delivery (principal); Z37.0 Single live birth; Z3A.39 39 weeks gestation of pregnancy
CPT/HCPCS: 01967; 36415; 51702; 59025; 59409; 82803; 85014; 85018; 85027; 86592; 86850; 86900; 86901; A9270-GY; J2405; J2590; J2795; J7120

== ENCOUNTER 2021-06-23 19:46 | Emergency (ER) | payer OTHER ==
[2021-06-23] MEDS ORDERED: Ondansetron 4 MG/2 ML SDV IVPUSH ONE (20:58)
[2021-06-23] MEDS ORDERED: Sodium Chloride 0.9% 1,000 ML IV ONE ×2 (20:58→23:43)
[2021-06-23] MEDS ORDERED: Ketorolac 30 MG/ML SDV IVPUSH ONE (20:59)
[2021-06-23 21:17] LABS: CARBON DIOXIDE,CO2 22.8 mmol/L (21.0-32.0); POTASSIUM,K 3.7 mmol/L (3.5-5.1)
[2021-06-23] MEDS ORDERED: HYDROmorphone 1 MG/ML Syringe IVPUSH ONE (21:35)
[2021-06-24] MEDS ORDERED: Tamsulosin 0.4 MG Cap.ER PO ONE (00:51)
[2021-06-24 00:54] VITALS: BP 129/76; PULSE 71
== END 2021-06-24 00:57 | disposition home or self-care (01) ==
LOC: MW.ED 19:46
DX: N20.0 Calculus of kidney (principal); Z86.16 Personal history of COVID-19
CPT/HCPCS: 36415; 74176; 80053; 81001; 81025; 83690; 85025; 96374; 96375; 99284; A9270; J1170; J1885; J2405; J7030; 99283

== ENCOUNTER 2023-02-26 20:41 | Emergency (ER) | payer BC ==
[2023-02-26] MEDS ORDERED: Sodium Chloride 0.9% 1,000 ML IV ONE (20:46)
[2023-02-26] MEDS ORDERED: Sodium Chloride 0.9% 2.5 ML Syringe FLUSH PRN (20:46)
[2023-02-26] MEDS ORDERED: Sodium Chloride 0.9% 10 ML Syringe FLUSH PRN (20:46)
[2023-02-26] MEDS ORDERED: LORazepam 2 MG/ML SDV IVPUSH ONE ×2 (21:47→21:59)
[2023-02-26] MEDS ORDERED: LORazepam 2 MG/ML SDV ONE (21:47)
[2023-02-26 22:03] LABS: INR 1.01 (0.86-1.11)
[2023-02-26 22:10] LABS: HEMATOCRIT 38.1 % (37.0-47.0); HEMOGLOBIN 13.1 g/dL (12.0-16.0); MEAN CORPUSCULAR HEMOGLOBIN 28.4 pg (28.0-32.0); MEAN CORPUSCULAR HGB CONC 34.4 g/dL (32.0-36.0); MEAN CORPUSCULAR VOLUME 82.6 fL (83.0-99.0); MEAN PLATELET VOLUME 9.5 fL (9.4-12.3); NEUTROPHILS PERCENT AUTO 58.3 % (41.0-71.0); PLATELET COUNT,PLT 249 K/uL (150-400); RED BLOOD CELL COUNT 4.61 M/uL (4.10-5.30); WHITE BLOOD CELL COUNT,WBC 7.92 K/uL (3.9-11.3)
[2023-02-26 22:11] LABS: BASOPHILS ABSOLUTE AUTO 0.04 K/uL (0.00-0.20); BASOPHILS PERCENT AUTO 0.5 % (0.0-1.0); CARBON DIOXIDE,CO2 23.8 mmol/L (21.0-32.0); EOSINOPHILS ABSOLUTE AUTO 0.06 K/uL (0.00-0.45); EOSINOPHILS PERCENT AUTO 0.8 % (0.0-6.0); IMMATURE GRAN ABSOLUTE AUTO 0.02 K/uL (0.00-0.05); IMMATURE GRAN PERCENT AUTO 0.3 % (0.0-0.4); LYMPHOCYTES ABSOLUTE AUTO 2.87 K/uL (1.00-4.80); LYMPHOCYTES PERCENT AUTO 36.2 % (24.0-44.0); MONOCYTES ABSOLUTE AUTO 0.31 K/uL (0.00-0.80); MONOCYTES PERCENT AUTO 3.9 % (0.0-8.0); NEUTROPHILS ABSOLUTE AUTO 4.62 K/uL (1.80-7.70); POTASSIUM,K 3.6 mmol/L (3.5-5.1)
[2023-02-26 22:12] LABS: A/G RATIO 1.1 (0.9-1.6); ALBUMIN 3.4 g/dL (3.4-5.0); BILIRUBIN TOTAL 0.1 mg/dL (0.2-1.0); CALCIUM 8.4 mg/dL (8.5-10.1); EST CRCL DRUG DOSING (CG) 84.36 mL/min; MAGNESIUM 1.8 mg/dL (1.8-2.4); PROTEIN TOTAL,TP 6.5 g/dL (6.4-8.2)
[2023-02-26 22:21] LABS: AMPHETAMINES SCREEN, URINE NEGATIVE (CUTOFF=500); BARBITURATE SCREEN,URINE NEGATIVE (CUTOFF=200); BENZODIAZEPINES SCREEN,URINE NEGATIVE (CUTOFF=150); BUPRENORPHINE SCREEN,URINE NEGATIVE (CUTOFF=10); METHADONE SCREEN, URINE NEGATIVE (CUTOFF=200); METHAMPHETAMINES SCREEN, URINE NEGATIVE (CUTOFF=500); OXYCODONE SCREEN,URINE NEGATIVE (CUT0FF=100); PCP SCREEN,URINE NEGATIVE (CUTOFF=25); THC SCREEN,URINE 20 NG/ML NEGATIVE (CUTOFF=50)
[2023-02-26 23:37] VITALS: BP 119/56; PULSE 121
[2023-02-27] MEDS ORDERED: Lactated Ringers 1,000 ML IV STA (00:36)
[2023-02-27] MEDS ORDERED: fentaNYL 50 MCG/ML SDV IVPUSH ONE (00:52)
[2023-02-27] MEDS ORDERED: Naloxone 0.4 MG/ML SDV IVPUSH PRN (00:52)
== END 2023-02-27 01:23 ==
LOC: MW.ED 20:41
DX: R56.9 Unspecified convulsions (principal); F10.129 Alcohol abuse with intoxication, unspecified; Z79.899 Other long term (current) drug therapy; Z86.16 Personal history of COVID-19
CPT/HCPCS: 36415; 80053; 80305-QW; 80307; 82550; 83690; 83735; 84484; 84703; 85025; 85610; 93005; 93010; 96361; 96365; 96375; 99284; 99285-25; J1953; J2060; J3010; J3490; J7030; J7060

== ENCOUNTER 2023-11-24 00:12 | Emergency (ER) | payer BC ==
[2023-11-24] MEDS ORDERED: Sodium Chloride 0.9% 2.5 ML Syringe FLUSH PRN (00:20)
[2023-11-24] MEDS ORDERED: Sodium Chloride 0.9% 10 ML Syringe FLUSH PRN (00:20)
[2023-11-24 00:36] LABS: BASOPHILS ABSOLUTE AUTO 0.05 K/uL (0.00-0.20); BASOPHILS PERCENT AUTO 0.6 % (0.0-1.0); EOSINOPHILS ABSOLUTE AUTO 0.18 K/uL (0.00-0.45); EOSINOPHILS PERCENT AUTO 2.1 % (0.0-6.0); HEMATOCRIT 33.1 % (37.0-47.0); HEMOGLOBIN 11.3 g/dL (12.0-16.0); IMMATURE GRAN ABSOLUTE AUTO 0.01 K/uL (0.00-0.05); IMMATURE GRAN PERCENT AUTO 0.1 % (0.0-0.4); LYMPHOCYTES ABSOLUTE AUTO 2.94 K/uL (1.00-4.80); LYMPHOCYTES PERCENT AUTO 34.5 % (24.0-44.0); MEAN CORPUSCULAR HEMOGLOBIN 29.3 pg (28.0-32.0); MEAN CORPUSCULAR HGB CONC 34.1 g/dL (32.0-36.0); MEAN CORPUSCULAR VOLUME 85.8 fL (83.0-99.0); MEAN PLATELET VOLUME 9.7 fL (9.4-12.3); MONOCYTES ABSOLUTE AUTO 0.42 K/uL (0.00-0.80); MONOCYTES PERCENT AUTO 4.9 % (0.0-8.0); NEUTROPHILS ABSOLUTE AUTO 4.92 K/uL (1.80-7.70); NEUTROPHILS PERCENT AUTO 57.8 % (41.0-71.0); PLATELET COUNT,PLT 217 K/uL (150-400); RED BLOOD CELL COUNT 3.86 M/uL (4.10-5.30); WHITE BLOOD CELL COUNT,WBC 8.52 K/uL (3.9-11.3)
[2023-11-24] MEDS: Ketorolac 30 MG/ML SDV IVPUSH ONE (00:54)
[2023-11-24] MEDS: Sodium Chloride 0.9% 1,000 ML IV ONE (00:55)
[2023-11-24 01:00] LABS: ALBUMIN 3.2 g/dL (3.4-5.0); BILIRUBIN TOTAL 0.2 mg/dL (0.2-1.0); CALCIUM 8.5 mg/dL (8.5-10.1); CARBON DIOXIDE,CO2 24.8 mmol/L (21.0-32.0); CREATININE 0.8 mg/dL (0.6-1.0); EST CRCL DRUG DOSING (CG) 104.54 mL/min; MAGNESIUM 1.7 mg/dL (1.8-2.4); POTASSIUM,K 3.6 mmol/L (3.5-5.1); PROTEIN TOTAL,TP 6.3 g/dL (6.4-8.2)
[2023-11-24 06:23] VITALS: BP 112/61; PULSE 79
== END 2023-11-24 06:24 | disposition home or self-care (01) ==
LOC: MW.ED 00:12
DX: F44.5 Conversion disorder with seizures or convulsions (principal); F10.120 Alcohol abuse with intoxication, uncomplicated; Z86.16 Personal history of COVID-19
CPT/HCPCS: 36415; 80053; 80307; 83690; 83735; 84703; 85025; 96361; 96374; 99284; J1885; J7030

== ENCOUNTER 2024-11-13 00:32 | Emergency (ER) | payer SELFPAY ==
[2024-11-13 01:05] LABS: APPEARANCE,URINE CLEAR; GLUCOSE,URINE NEGATIVE (NEGATIVE); OCCULT BLOOD,URINE NEGATIVE (NEGATIVE)
[2024-11-13 01:10] LABS: EPITHELIAL CELLS,URINE RARE (NONE-FEW)
[2024-11-13 01:15] LABS: AMPHETAMINES SCREEN, URINE NEGATIVE (CUTOFF=500); BUPRENORPHINE SCREEN,URINE NEGATIVE (CUTOFF=10); METHADONE SCREEN, URINE NEGATIVE (CUTOFF=200); METHAMPHETAMINES SCREEN, URINE NEGATIVE (CUTOFF=500); OXYCODONE SCREEN,URINE NEGATIVE (CUT0FF=100); PCP SCREEN,URINE NEGATIVE (CUTOFF=25); THC SCREEN,URINE 20 NG/ML NEGATIVE (CUTOFF=50)
[2024-11-13 08:34] VITALS: BP 110/65; PULSE 96
== END 2024-11-13 08:34 | disposition home or self-care (01) ==
LOC: MW.ED 00:32
DX: M25.571 Pain in right ankle and joints of right foot (principal); M79.641 Pain in right hand; Z79.899 Other long term (current) drug therapy
CPT/HCPCS: 73130; 73600; 73620; 80305; 81001; 81025; 99284; A9270; 99283